=== PATIENT | female | born 1950 | race Caucasian/White ===

== ENCOUNTER 2022-10-23 11:58 | Inpatient (IN) | payer MEDICARE ==
[2022-10-23] MEDS ORDERED: SODIUM CHLORIDE 0.9% 1,000 ML IV STA (12:35)
[2022-10-23] MEDS ORDERED: ACETAMINOPHEN TAB 325 MG TAB PO STA (12:37)
[2022-10-23] MEDS ORDERED: KETOROLAC 15 MG/ML 1 ML VIAL IVP STA (12:38)
--- NOTE | 2022-10-23 12:41 | ED ---
General Adult HPI - General Chief complaint: Weakness Stated complaint: Flu,Chest Pain Time Seen by Provider: 10/23/22 12:22 Source: patient, family, EMS, RN notes reviewed, old records reviewed Mode of arrival: EMS Limitations: no limitations - History of Present Illness Initial comments: This is a 72-year-old female alert and oriented x4 that presents to the emergency room via EMS with complaints of persistent cough, chills, and diarrhea that started on Thursday. Patient states that she took some leftover steroids that she had on Thursday. Did see her primary care doctor on Thursday and was prescribed a Z-Yamil and cough medicine and directed to continue the steroids. States was told she had influenza without any testing. Patient states that she was on the toilet yesterday having large episode of diarrhea when she stood up she had a syncopal episode falling forward. Unsure how long she was down. She does live alone. Denies hitting her head. She denies any chest pain. She states she is a daily smoker but has not smoked since getting sick. -: days(s) (6) Severity scale (1-10): 0 Associated Symptoms: cough, fever/chills, malaise, syncope, weakness, other (Diarrhea) Treatments Prior to Arrival: other (Z-Yamil, steroids) - Related Data Home Medications Medication Instructions Recorded Confirmed Azithromycin [Zithromax Z Pack] See Taper PO DIRECTED 10/23/22 10/23/22 Glimepiride [Amaryl] 8 mg PO DAILY 10/23/22 10/23/22 Pioglitazone [Actos] 45 mg PO DAILY 10/23/22 10/23/22 Rosuvastatin [Crestor] 20 mg PO DAILY 10/23/22 10/23/22 Allergies Allergy/AdvReac Type Severity Reaction Status Date / Time brompheniramine Allergy Unknown Verified 10/23/22 12:30 [From Tussi Pres-B] dextromethorphan Allergy Unknown Verified 10/23/22 12:30 [From Tussi Pres-B] gabapentin Allergy Unknown Verified 10/23/22 12:30 nitrofurantoin Allergy Unknown Verified 10/23/22 12:30 [From Macrobid] phenylephrine Allergy Unknown Verified 10/23/22 12:30 [From Tussi Pres-B] Sulfa (Sulfonamide Allergy Unknown Verified 10/23/22 12:30 Antibiotics) Review of Systems ROS Statement: Those systems with pertinent positive or pertinent negative responses have been documented in the HPI. ROS Other: All systems not noted in ROS Statement are negative. Past Medical History Past Medical History: Diabetes Mellitus Additional Past Medical History / Comment(s): Type 2, Kidney Stones History of Any Multi-Drug Resistant Organisms: None Reported Past Surgical History: Hysterectomy Past Psychological History: No Psychological Hx Reported Smoking Status: Current every day smoker Past Alcohol Use History: None Reported Past Drug Use History: None Reported General Exam Limitations: no limitations General appearance: alert, in no apparent distress Head exam: Present: atraumatic Eye exam: Absent: scleral icterus, conjunctival injection, periorbital swelling ENT exam: Present: mucous membranes moist Neck exam: Present: full ROM. Absent: tenderness, meningismus Respiratory exam: Present: other (Diminished at the bases). Absent: respiratory distress, wheezes, rales, rhonchi, stridor, chest wall tenderness, accessory muscle use Cardiovascular Exam: Present: regular rate GI/Abdominal exam: Present: soft. Absent: distended, tenderness, guarding, rebound, rigid Extremities exam: Present: normal inspection, full ROM, normal capillary refill. Absent: tenderness, pedal edema Back exam: Present: normal inspection. Absent: tenderness, paraspinal tenderness, vertebral tenderness, rash noted Neurological exam: Present: alert, oriented X3 Psychiatric exam: Present: normal affect, normal mood Skin exam: Present: warm, dry, normal color. Absent: rash, cyanosis, diaphoretic, petechiae, pallor Course Vital Signs 10/23/22 10/23/22 10/23/22 12:20 12:31 13:41 Temperature 99.0 F 98.3 F Pulse Rate 83 81 Respiratory 20 22 18 Rate Blood Pressure 130/63 148/73 O2 Sat by Pulse 97 97 Oximetry 10/23/22 10/23/22 14:05 15:25 Temperature 98.2 F Pulse Rate 80 73 Respiratory 18 17 Rate Blood Pressure 155/74 152/58 O2 Sat by Pulse 95 96 Oximetry - Reevaluation(s) Reevaluation #1: 10/23/22 16:58 Dr. Hicks cardiology notified of patient's elevated troponin. Heparin was initiated. Time: 15:12 EKG Findings - EKG Results: EKG: sinus rhythm (Ventricular rate 77, KS interval 0.122, QRS 0.90, QTC 0.437) Medical Decision Making - Medical Decision Making Chest x-ray interpreted by me shows no evidence of consolidation, cardiac silhouette within normal size Radiologist interpretation correlate for interstitial pneumonitis or pneumonia. Correlate for COPD Labs show no evidence of leukocytosis. EKG shows sinus rhythm with no ST elevation. No old EKG to compare Moderate heart score. Troponin is elevated at 14.5 for heparin drip was initiated cardiology was paged patient will be admitted to the hospital. Patient was notified of the results and agreeable to admission. Coronavirus and influenza swabs negative Was pt. sent in by a medical professional or institution? @ -No Did you speak to anyone other than the patient for history? @ -No Did you review nursing and triage notes? @ -Agreeable Were old charts reviewed? @ no Differential Diagnosis? @ -Differential Dyspnea: Coronary syndrome, arrhythmia, tamponade, asthma, COPD, pulmonary embolism, pneumonia, pneumothorax, pulmonary effusion, anaphylaxis, diabetic ketoacidosis, flailed chest, pulmonary contusion, diaphragmatic rupture, anemia, neuromuscular , this is not meant to be an all-inclusive list. EKG interpreted by me (3pts min.)? @ -yes as above X-rays interpreted by me (1pt min.)? @ -Yes as above CT interpreted by me (1pt min.)? @ -Not applicable U/S interpreted by me (1pt. min.)? @ -Not applicable What testing was considered but not performed? (CT, X-rays, U/S, labs)? Why? @ None What meds were considered but not given? Why? @ -Done Did you discuss the management of the patient with other professionals? @ -Cardiology Dr. Hicks Did you reconcile home meds? @ -No Was smoking cessation discussed for >3mins.? @ -no Was critical care preformed (if so, how long)? @ -Yes 32 minutes Were there social determinants of health that impacted care today? How? (Homelessness, low income, unemployed, alcoholism, drug addiction, transportation, low edu. Level, literacy, decrease access to med. care, detention, rehab)? @ -None Was there de-escalation of care discussed even if they declined? (Discuss DNR or withdrawal of care, Hospice)? @ -No What co-morbidities impacted this encounter? (DM, HTN, Smoking, COPD, CAD, Cancer, CVA, Hep., AIDS, mental health diagnosis, sleep apnea, morbid obesity)? @ -Diabetes, smoker. Was patient admitted / discharged? @ -Admitted Undiagnosed new problem with uncertain prognosis? @ -[none] Drug Therapy requiring intensive monitoring for toxicity (Heparin, Nitro, Insulin, Cardizem)? @ -Heparin Were any procedures done? @ -No Diagnosis/symptom? @ -N STEMI influenza Acute, or Chronic, or Acute on Chronic? @ -Acute Uncomplicated (without systemic symptoms) or Complicated (systemic symptoms)? @ -Complicated Side effects of treatment? @ -[none] Exacerbation, Progression, or Severe Exacerbation] @ -[no] Poses a threat to life or bodily function? @ -Yes - Lab Data Result diagrams: 10/23/22 13:22 10/23/22 13: Lab Results 10/23/22 10/23/22 10/23/22 Range/Units 13:22 13:22 13:22 WBC 7.7 (3.8-10.6) k/uL RBC 4.53 (3.80-5.40) m/uL Hgb 14.2 (11.4-16.0) gm/dL Hct 41.4 (34.0-46.0) % MCV 91.3 (80.0-100.0) fL MCH 31.4 (25.0-35.0) pg MCHC 34.4 (31.0-37.0) g/dL RDW 14.2 (11.5-15.5) % Plt Count 156 (150-450) k/uL MPV 9.1 Neutrophils % 68 % Lymphocytes % 20 % Monocytes % 7 % Eosinophils % 1 % Basophils % 1 % Neutrophils # 5.2 (1.3-7.7) k/uL Lymphocytes # 1.5 (1.0-4.8) k/uL Monocytes # 0.6 (0-1.0) k/uL Eosinophils # 0.1 (0-0.7) k/uL Basophils # 0.1 (0-0.2) k/uL PT 9.8 (9.0-12.0) sec INR 0.9 (<1.2) APTT 25.6 (22.0-30.0) sec Sodium 135 L (137-145) mmol/L Potassium 3.4 L (3.5-5.1) mmol/L Chloride 103 (98-107) mmol/L Carbon Dioxide 25 (22-30) mmol/L Anion Gap 7 mmol/L BUN 12 (7-17) mg/dL Creatinine 0.51 L (0.52-1.04) mg/dL Est GFR (CKD-EPI)AfAm >90 (>60 ml/min/1.73 sqM) Est GFR (CKD-EPI)NonAf >90 (>60 ml/min/1.73 sqM) Glucose 216 H (74-99) mg/dL Calcium 8.4 (8.4-10.2) mg/dL Magnesium 2.0 (1.6-2.3) mg/dL Total Bilirubin 1.0 (0.2-1.3) mg/dL AST 106 H (14-36) U/L ALT 35 H (4-34) U/L Alkaline Phosphatase 70 (38-126) U/L Troponin I (0.000-0.034) ng/mL Total Protein 7.3 (6.3-8.2) g/dL Albumin 4.0 (3.5-5.0) g/dL 10/23/22 Range/Units 13:22 WBC (3.8-10.6) k/uL RBC (3.80-5.40) m/uL Hgb (11.4-16.0) gm/dL Hct (34.0-46.0) % MCV (80.0-100.0) fL MCH (25.0-35.0) pg MCHC (31.0-37.0) g/dL RDW (11.5-15.5) % Plt Count (150-450) k/uL MPV Neutrophils % % Lymphocytes % % Monocytes % % Eosinophils % % Basophils % % Neutrophils # (1.3-7.7) k/uL Lymphocytes # (1.0-4.8) k/uL Monocytes # (0-1.0) k/uL Eosinophils # (0-0.7) k/uL Basophils # (0-0.2) k/uL PT (9.0-12.0) sec INR (<1.2) APTT (22.0-30.0) sec Sodium (137-145) mmol/L Potassium (3.5-5.1) mmol/L Chloride (98-107) mmol/L Carbon Dioxide (22-30) mmol/L Anion Gap mmol/L BUN (7-17) mg/dL Creatinine (0.52-1.04) mg/dL Est GFR (CKD-EPI)AfAm (>60 ml/min/1.73 sqM) Est GFR (CKD-EPI)NonAf (>60 ml/min/1.73 sqM) Glucose (74-99) mg/dL Calcium (8.4-10.2) mg/dL Magnesium (1.6-2.3) mg/dL Total Bilirubin (0.2-1.3) mg/dL AST (14-36) U/L ALT (4-34) U/L Alkaline Phosphatase (38-126) U/L Troponin I 14.500 H* (0.000-0.034) ng/mL Total Protein (6.3-8.2) g/dL Albumin (3.5-5.0) g/dL Critical Care Time Critical Care Time: Yes Total Critical Care Time: 32 (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 Camacho, cardiology paged) Disposition Clinical Impression: NSTEMI (non-ST elevated myocardial infarction) Disposition: ADMITTED IP TO THIS [facility] Decision Date: 10/23/22 Decision Time: 14:36
[2022-10-23 13:34] LABS: Basophils # (A) 0.1 k/uL (0-0.2); Basophils % (A) 1 %; Eosinophils # (A) 0.1 k/uL (0-0.7); Eosinophils % (A) 1 %; HCT 41.4 % (34.0-46.0); HGB 14.2 gm/dL (11.4-16.0); Lymphocytes # (A) 1.5 k/uL (1.0-4.8); Lymphocytes % (A) 20 %; MCH 31.4 pg (25.0-35.0); MCHC 34.4 g/dL (31.0-37.0); MCV 91.3 fL (80.0-100.0); Mean Platelet Volume 9.1; Monocytes # (A) 0.6 k/uL (0-1.0); Monocytes % (A) 7 %; Neutrophils # (A) 5.2 k/uL (1.3-7.7); Neutrophils % (A) 68 %; Platelet Count 156 k/uL (150-450); RBC 4.53 m/uL (3.80-5.40); RDW 14.2 % (11.5-15.5); WBC 7.7 k/uL (3.8-10.6)
--- NOTE | 2022-10-23 13:40 | XR ---
EXAMINATION TYPE: XR chest 2V DATE OF EXAM: 10/23/2022 COMPARISON: NONE TECHNIQUE: PA and lateral views submitted. HISTORY: Fever and cough FINDINGS: The lungs are clear and there is no pneumothorax, pleural effusion, or focal pneumonia. Worsening i nterstitium. Arthropathy of the shoulders. Atherosclerotic change aorta. Hyperinflation. IMPRESSION: 1. Correlate for interstitial pneumonitis or pneumonia. 2. Correlate for COPD.
[2022-10-23 13:52] LABS: INR 0.9 (<1.2); Partial Thromboplastin Time 25.6 sec (22.0-30.0); Prothrombin Time 9.8 sec (9.0-12.0)
[2022-10-23 14:03] LABS: ALT 35 U/L (4-34); AST 106 U/L (14-36); African American GFR (CKD) >90 (>60 ml/min/1.73 sqM); Alkaline Phosphatase 70 U/L (38-126); Anion Gap 7 mmol/L; Blood Urea Nitrogen 12 mg/dL (7-17); Calcium 8.4 mg/dL (8.4-10.2); Carbon Dioxide 25 mmol/L (22-30); Chloride 103 mmol/L (98-107); Glucose 216 mg/dL (74-99); Non-African American GFR(CKD) >90 (>60 ml/min/1.73 sqM); Potassium 3.4 mmol/L (3.5-5.1); Sodium 135 mmol/L (137-145); Total Protein 7.3 g/dL (6.3-8.2)
[2022-10-23] MEDS ORDERED: HEPARIN SODIUM 1,000 UN/ML (10ML VL) IV PRN (14:30)
[2022-10-23] MEDS ORDERED: HEPARIN SODIUM 1,000 UN/ML (10ML VL) IV ONE (14:30)
[2022-10-23] MEDS ORDERED: NALOXONE 0.4 MG/ML 1 ML VIAL IV PRN (14:36)
[2022-10-23] MEDS ORDERED: ACETAMINOPHEN TAB 325 MG TAB PO PRN (14:36)
[2022-10-23] MEDS ORDERED: ONDANSETRON 4 MG/2 ML VIAL IVP PRN (14:36)
[2022-10-23] MEDS: PANTOPRAZOLE 40 MG/10 ML VIAL IV SCH (15:19)
[2022-10-23] MEDS: HEPARIN SOD,PORK IN 0.45% NACL 25,000 UNIT in 0.45% NACL 1 250ML.BAG IV SCH (15:22)
[2022-10-23] MEDS: SODIUM CHLORIDE 0.9% 1,000 ML IV SCH (15:24)
[2022-10-23] MEDS ORDERED: ATORVASTATIN 40 MG TAB PO SCH (17:15)
--- NOTE | 2022-10-23 17:19 | P.HPIM ---
History of Present Illness H&P Date: 10/23/22 Julianne Capps, is a 72 year old female, patient of Dr Smith, who presented to [facility] emergency room with a chief complaint of fever or chills and cough He was evaluated in the emergency room vital examination on presentation revealed a temperature of 99 pulse 83 respiration 20 blood pressure 130/63 pulse ox 97% on room air Laboratory data reveals a white blood count of 7.7 hemoglobin 14.2 platelet count 156 sodium 135 potassium 3.4 chloride 103 CO2 25 BUN 12 creatinine 0.51 testing for influenza A and B and coronavirus were negative. Troponin level was significantly elevated at 14.5 Testing in the emergency room revealed chest x-ray done in the emergency room revealed evidence of interstitial pneumonitis or pneumonia and possible COPD, EKG done in the emergency room revealed sinus rhythm with nonspecific ST and T- wave abnormalities Patient was admitted to medical floor for further evaluation and treatment, she was started on IV heparin, cardiology consultation was requested, also pulmonary consultation was requested in regard to fever cough and abnormal chest x-ray. Past Medical History Past Medical History: Diabetes Mellitus Additional Past Medical History / Comment(s): Type 2, Kidney Stones History of Any Multi-Drug Resistant Organisms: None Reported Past Surgical History: Hysterectomy Past Psychological History: No Psychological Hx Reported Smoking Status: Current every day smoker Past Alcohol Use History: None Reported Past Drug Use History: None Reported Medications and Allergies Home Medications Medication Instructions Recorded Confirmed Type Azithromycin [Zithromax Z Pack] See Taper PO DIRECTED 10/23/22 10/23/22 History Glimepiride [Amaryl] 8 mg PO DAILY 10/23/22 10/23/22 History Pioglitazone [Actos] 45 mg PO DAILY 10/23/22 10/23/22 History Rosuvastatin [Crestor] 20 mg PO DAILY 10/23/22 10/23/22 History Allergies Allergy/AdvReac Type Severity Reaction Status Date / Time brompheniramine Allergy Unknown Verified 10/23/22 12:30 [From Tussi Pres-B] dextromethorphan Allergy Unknown Verified 10/23/22 12:30 [From Tussi Pres-B] gabapentin Allergy Unknown Verified 10/23/22 12:30 nitrofurantoin Allergy Unknown Verified 10/23/22 12:30 [From Macrobid] phenylephrine Allergy Unknown Verified 10/23/22 12:30 [From [facility]] Sulfa (Sulfonamide Allergy Unknown Verified 10/23/22 12:30 Antibiotics) Physical Exam Vitals: Vital Signs Temp Pulse Resp BP Pulse Ox 10/23/22 15:25 73 17 152/58 96 10/23/22 14:05 98.2 F 80 18 155/74 95 10/23/22 13:41 98.3 F 81 18 148/73 97 10/23/22 12:31 22 10/23/22 12:20 99.0 F 83 20 130/63 97 Intake and Output 10/23/22 10/23/22 10/23/22 06:59 14:59 22:59 Other: Weight 57.606 kg In general patient is alert and oriented x 3 in no distress HEENT head normocephalic and atraumatic Neck is supple no JVD no goiter no lymphadenopathy no carotid bruit Chest examination is clear to auscultation no crackles no wheezing Cardiac exam reveals regular heart sounds S1 and S2 no gallops no murmurs Abdomen is soft nontender no organomegaly with normal bowel sounds Extremity exam reveals no edema no cyanosis or clubbing Neurological examination reveals no gross focal deficits Results CBC & Chem 7: 10/23/22 13:22 10/23/22 13:22 Labs: Abnormal Lab Results - Last 24 Hours (Table) 10/23/22 10/23/22 Range/Units 13:22 13:22 Sodium 135 L (137-145) mmol/L Potassium 3.4 L (3.5-5.1) mmol/L Creatinine 0.51 L (0.52-1.04) mg/dL Glucose 216 H (74-99) mg/dL AST 106 H (14-36) U/L ALT 35 H (4-34) U/L Troponin I 14.500 H* (0.000-0.034) ng/mL Assessment and Plan Plan: Elevated troponin level, patient was started on IV heparin cardiology consultation requested Acute bronchitis with febrile illness, rule out pneumonia, will start IV Rocephin, will recheck chest x-ray in a.m. tomorrow PA and lateral Syncopal episode at home Underlying history of [id number] diabetes mellitus Underlying history of hyperlipidemia Previous history of kidney stones At this time patient was seen and examined Home medications reviewed and reordered Patient was started on IV heparin Patient was started on IV ceftriaxone Pulmonary and cardiology consultation requested Will follow closely
[2022-10-23] MEDS: MELATONIN 5 MG TABLET PO SCH (20:15)
[2022-10-23 20:16] LABS: Glucose,Whole Blood 293 mg/dL (70-110)
[2022-10-23] MEDS ORDERED: DEXTROSE 50% SYRINGE 50 ML IVP PRN ×2 (20:16)
[2022-10-23] MEDS: INSULIN ASPART (NovoLOG) 100 UNIT/ML VIAL SQ SCH (20:26)
[2022-10-24 04:21] LABS: Basophils % (A) 0 %; Eosinophils # (A) 0.1 k/uL (0-0.7); Eosinophils % (A) 1 %; HGB 12.1 gm/dL (11.4-16.0); Lymphocytes # (A) 1.5 k/uL (1.0-4.8); Lymphocytes % (A) 21 %; MCHC 34.7 g/dL (31.0-37.0); MCV 92.2 fL (80.0-100.0); Mean Platelet Volume 8.5; Monocytes # (A) 0.6 k/uL (0-1.0); Monocytes % (A) 8 %; Neutrophils # (A) 4.7 k/uL (1.3-7.7); Neutrophils % (A) 67 %; Platelet Count 142 k/uL (150-450); RBC 3.79 m/uL (3.80-5.40); RDW 13.8 % (11.5-15.5)
[2022-10-24 04:33] LABS: INR 0.9 (<1.2); Partial Thromboplastin Time 39.3 sec (22.0-30.0); Prothrombin Time 9.6 sec (9.0-12.0)
[2022-10-24 06:35] LABS: Glucose,Whole Blood 121 mg/dL (70-110)
[2022-10-24] MEDS ORDERED: HEPARIN SODIUM,PORCINE 2,500 UNIT in SODIUM CHLORIDE 0.9% 250 ML IRRIGATION PRN (07:00)
[2022-10-24] MEDS ORDERED: HEPARIN SODIUM,PORCINE 10,000 UNIT in SODIUM CHLORIDE 0.9% 1,000 ML IRRIGATION PRN (07:00)
--- NOTE | 2022-10-24 08:19 | XR ---
EXAMINATION TYPE: XR chest 2V DATE OF EXAM: 10/24/2022 COMPARISON: 10/23/2022 TECHNIQUE: PA and lateral views submitted. HISTORY: Fever FINDINGS: The lungs are clear and there is no pneumothorax, pleural effusion, or focal pneumonia. Hyperinflat ion with coarsened interstitium. Arthropathy of the shoulders with diffuse osteopenia. IMPRESSION: 1. COPD. Interstitium remains prominent which could been the basis of chronic interstitial lung disea se or interstitial pneumonitis correlate clinically.
[2022-10-24] MEDS: PIOGLITAZONE 45 MG TAB PO SCH (08:23)
[2022-10-24] MEDS: GLIMEPIRIDE 4 MG TAB PO SCH (08:23)
[2022-10-24] MEDS: INSULIN ASPART (NovoLOG) 100 UNIT/ML VIAL SQ SCH ×4 (08:23→20:56)
[2022-10-24] MEDS: PANTOPRAZOLE 40 MG/10 ML VIAL IV SCH (08:23)
[2022-10-24] MEDS: SODIUM CHLORIDE 0.9% 1,000 ML IV SCH ×2 (10:14→18:04)
[2022-10-24] MEDS ORDERED: ALPRAZolam 0.25 MG TAB PO PRN (11:31)
[2022-10-24] MEDS ORDERED: NITROGLYCERIN SL TABS 0.4 MG TAB SUBLINGUAL PRN (11:31)
[2022-10-24] MEDS ORDERED: ALPRAZolam 0.5 MG TAB PO PRN (11:31)
[2022-10-24] MEDS ORDERED: ATORVASTATIN 80 MG TAB PO STA (11:31)
[2022-10-24] MEDS ORDERED: ASPIRIN 325 MG TAB PO STA (11:31)
--- NOTE | 2022-10-24 11:37 | P.CRDCN ---
History of Present Illness History of present illness: HISTORY OF PRESENTING ILLNESS Patient is a pleasant 72-year-old female with history of diabetes mellitus type 2 hypertension, hyperlipidemia, tobacco abuse who presents secondary to recent c ough and shortness of breath. She states she has had a persistent cough for the last 5-6 days. She did develop some chest discomfort Thursday which lasted for almost half the day and she attributed this to coughing too hard. Her family member believes she was having chest pain yesterday as well. Additionally family member states she fell unclear if she actually passed out previously as well. She denies any prior cardiac history however did have heart catheterization approximately 10 years ago. This was reportedly relatively normal. She has had diabetes for 25 years. She does smoke however no diagnosis of COPD. EKG shows sinus rhythm with nonspecific minimal ST depressions in the inferior leads. Blood work shows troponin 14.5, 13.6, proBNP 812. No current chest pain REVIEW OF SYSTEMS At the time of my exam: CONSTITUTIONAL: Denies fever or chills. CARDIOVASCULAR: +chest pain, +shortness of breath, no orthopnea, PND or palpitations. RESPIRATORY: +cough. GASTROINTESTINAL: Denies abdominal pain, diarrhea, constipation, nausea or vomiting. MUSCULOSKELETAL: Denies myalgias. NEUROLOGIC: Denies numbness, tingling or weakness. ENDOCRINE: Denies fatigue, weight change, polydipsia or polyurina. GENITOURINARY: Denies burning, hematuria or urgency with micturation. HEMATOLOGIC: Denies history of anemia or bleeding. PHYSICAL EXAMINATION Vital signs reviewed. CONSTITUTIONAL: No apparent distress. HEENT: Head is normocephalic. Pupils are equal, round. Sclerae anicteric. Mucous membranes of the mouth are moist. No JVD. No carotid bruit. CHEST EXAMINATION: Lungs are clear to auscultation. No chest wall tenderness is noted on palpation or with deep breathing. HEART EXAMINATION: Regular rate and rhythm. S1, S2 heard. No murmurs, gallops or rub. ABDOMEN: Soft, nontender. Positive bowel sounds. EXTREMITIES: 2+ peripheral pulses, no lower extremity edema and no calf tend erness. NEUROLOGIC EXAMINATION: Patient is awake, alert and oriented x3. ASSESSMENT 1. Non-STEMI 2. Diabetes mellitus type 2 3. Hyperlipidemia 4. Recent episodes of chest pain she attributed to coughing suspect angina 5. Recent cough rule out infectious etiology 6. Tobacco abuse PLAN Patient with non-STEMI with significantly elevated troponins. Suspect she had [place] with chest pain approximately 2 days ago. Some report of questionable fall unclear if she actually lost consciousness. Discussed recommendations for heart catheterization and patient is agreeable. Tobacco cessation. Check 2-D echo. Further recommendations to follow. Past Medical History Past Medical History: Diabetes Mellitus Additional Past Medical History / Comment(s): Type 2, Kidney Stones History of Any Multi-Drug Resistant Organisms: None Reported Past Surgical History: Hysterectomy Past Anesthesia/Blood Transfusion Reactions: No Reported Reaction Past Psychological History: No Psychological Hx Reported Smoking Status: Current every day smoker Past Alcohol Use History: None Reported Past Drug Use History: None Reported - Past Family History Father Family Medical History: Coronary Artery Disease (CAD), Diabetes Mellitus Mother Family Medical History: Coronary Artery Disease (CAD), Diabetes Mellitus Medications and Allergies Home Medications Medication Instructions Recorded Confirmed Type Azithromycin [Zithromax Z Pack] See Taper PO DIRECTED 10/23/22 10/23/22 History Glimepiride [Amaryl] 8 mg PO DAILY 10/23/22 10/23/22 History Pioglitazone [Actos] 45 mg PO DAILY 10/23/22 10/23/22 History Rosuvastatin [Crestor] 20 mg PO DAILY 10/23/22 10/23/22 History Allergies Allergy/AdvReac Type Severity Reaction Status Date / Time atorvastatin [From Lipitor] Allergy Unknown Verified 10/23/22 18:12 brompheniramine Allergy Unknown Verified 10/23/22 12:30 [From Tussi Pres-B] cephalexin [From Keflex] Allergy Unknown Verified 10/23/22 18:10 dextromethorphan Allergy Unknown Verified 10/23/22 12:30 [From Tussi Pres-B] gabapentin Allergy Unknown Verified 10/23/22 12:30 Iodinated Contrast Media Allergy Anaphylaxis Verified 10/23/22 18:10 nitrofurantoin Allergy Unknown Verified 10/23/22 12:30 [From Macrobid] phenylephrine Allergy Unknown Verified 10/23/22 12:30 [From Tussi Pres-B] simvastatin [From Zocor] Allergy Unknown Verified 10/23/22 18:12 Sulfa (Sulfonamide Allergy Unknown Verified 10/23/22 12:30 Antibiotics) Physical Exam Vitals: Vital Signs Temp Pulse Pulse Resp BP BP Pulse Ox 10/24/22 08:21 98.0 F 82 18 96/57 81 L 10/24/22 03:21 98.7 F 75 18 124/61 94 L 10/23/22 23:26 98.4 F 71 18 138/57 98 10/23/22 19:37 98.3 F 72 18 125/53 95 10/23/22 17:32 99.1 F 63 16 113/43 97 10/23/22 16:58 71 16 123/60 97 10/23/22 15:25 73 17 152/58 96 10/23/22 14:05 98.2 F 80 18 155/74 95 10/23/22 13:41 98.3 F 81 18 148/73 97 10/23/22 12:31 22 10/23/22 12:20 99.0 F 83 20 130/63 97 Intake and Output 10/23/22 10/24/22 10/24/22 22:59 06:59 14:59 Intake Total 241.017 60.084 Balance 241.017 60.084 Intake: Intake, IV Titration 41.017 60.084 Amount Heparin Sod,Pork in 0.45% 41.017 60.084 NaCl 25,000 unit In 0.45 % NaCl 1 250ml.bag @ 12 UNITS/KG/HR 6.913 mls/hr IV .Q24H [facility] Rx#: [id number] Oral 200 Other: # Voids 1 Weight 57.606 kg Results 10/24/22 03:30 10/23/22 13:22 Cardiac Enzymes 10/23/22 10/23/22 10/23/22 Range/Units 13:22 13:22 16:55 AST 106 H (14-36) U/L Troponin I 14.500 H* 13.600 H* (0.000-0.034) ng/mL Coagulation 10/23/22 10/23/22 10/24/22 Range/Units 13:22 20:25 03:30 PT 9.8 9.6 (9.0-12.0) sec APTT 25.6 43.1 H 39.3 H (22.0-30.0) sec CBC 10/23/22 10/24/22 Range/Units 13:22 03:30 WBC 7.7 7.0 (3.8-10.6) k/uL RBC 4.53 3.79 L (3.80-5.40) m/uL Hgb 14.2 12.1 (11.4-16.0) gm/dL Hct 41.4 35.0 (34.0-46.0) % Plt Count 156 142 L (150-450) k/uL Comprehensive Metabolic Panel 10/23/22 Range/Units 13:22 Sodium 135 L (137-145) mmol/L Potassium 3.4 L (3.5-5.1) mmol/L Chloride 103 (98-107) mmol/L Carbon Dioxide 25 (22-30) mmol/L BUN 12 (7-17) mg/dL Creatinine 0.51 L (0.52-1.04) mg/dL Glucose 216 H (74-99) mg/dL Calcium 8.4 (8.4-10.2) mg/dL AST 106 H (14-36) U/L ALT 35 H (4-34) U/L Alkaline Phosphatase 70 (38-126) U/L Total Protein 7.3 (6.3-8.2) g/dL Albumin 4.0 (3.5-5.0) g/dL Current Medications Generic Name Dose Route Start Last Admin Trade Name Freq PRN Reason Stop Dose Admin Acetaminophen 650 mg 10/23/22 14:36 Acetaminophen Tab 325 Mg Tab PO Q6HR PRN Mild Pain or Fever > 100.5 Albuterol/Ipratropium 3 ml 10/24/22 12:00 Ipratropium-Albuterol 3 Ml Neb INHALATION RT-Q4H [facility] Alprazolam 0.25 mg 10/24/22 11:31 Alprazolam 0.25 Mg Tab PO Q6HR PRN Mild Anxiety Alprazolam 0.5 mg 10/24/22 11:31 Alprazolam 0.5 Mg Tab PO Q6HR PRN Moderate Anxiety Aspirin 325 mg 10/24/22 11:31 Aspirin 325 Mg Tab PO 10/24/22 11:32 ONCE STA Atorvastatin Calcium 80 mg 10/24/22 11:31 Atorvastatin 80 Mg Tab PO 10/24/22 11:32 ONCE STA Budesonide/Formoterol Fumarate 2 puff 10/24/22 20:00 Symbicort 160-4.5 Mcg Inhaler INHALATION RT-BID [facility] Dextrose/Water 25 ml 10/23/22 20:16 Dextrose 50% Syringe 50 Ml IVP PER PROTOCOL PRN Hypoglycemia Protocol Dextrose/Water 50 ml 10/23/22 20:16 Dextrose 50% Syringe 50 Ml IVP PER PROTOCOL PRN Hypoglycemia Protocol Glimepiride 8 mg 10/24/22 09:00 10/24/22 08:23 Glimepiride 4 Mg Tab PO 8 mg DAILY [facility] Administration Heparin Sodium (Porcine) 0 unit 10/23/22 14:30 Heparin Sodium 1,000 Un/Ml (10ml Vl) IV PER PROTOCOL PRN Low PTT Protocol Heparin Sodium/Sodium Chloride 250 mls @ 6.913 mls/hr 10/23/22 14:30 10/24/22 04:45 25,000 unit/ Sodium Chloride IV 16 units/kg/hr .Q24H [facility] 9.217 mls/hr Titration Protocol 12 UNITS/KG/HR Sodium Chloride 1,000 mls @ 75 mls/hr 10/23/22 14:45 10/24/22 10:14 Saline 0.9% IV Not Given .[id number] [facility] Ceftriaxone Sodium 1 gm/ 50 mls @ 100 mls/hr 10/23/22 17:15 10/24/22 08:23 Sodium Chloride IVPB 100 mls/hr Q24HR [facility] Administration Protocol Heparin Sodium (Porcine) 10, 1,001 mls @ 999 mls/hr 10/24/22 07:00 000 unit/ Sodium Chloride IRRIGATION 10/24/22 23:00 ONCE PRN INTRA-OP Heparin Sodium (Porcine) 2,500 250.5 mls @ 250 mls/hr 10/25/22 07:00 unit/ Sodium Chloride IRRIGATION 10/25/22 23:00 ONCE PRN INTRA-OP Insulin Aspart 0 unit 10/23/22 21:00 10/24/22 08:23 Insulin Aspart (Novolog) 100 Unit/Ml Vial SQ Not Given ACHS [facility] Protocol Melatonin 10 mg 10/23/22 21:00 10/23/22 20:15 Melatonin 5 Mg Tablet PO 10 mg HS [facility]DA Administration Methylprednisolone Sodium Succinate 60 mg 10/24/22 12:00 Methylprednisolone Sod Succi 125 Mg/2 Ml Vial IV Q6HR [facility] Naloxone HCl 0.2 mg 10/23/22 14:36 Naloxone 0.4 Mg/Ml 1 Ml Vial IV Q2M PRN Opioid Reversal Nitroglycerin 0.4 mg 10/24/22 11:31 Nitroglycerin Sl Tabs 0.4 Mg Tab SUBLINGUAL Q5M PRN Chest Pain Crestor 20mg Tab 20 each 10/24/22 09:00 PO DAILY [facility] Ondansetron HCl 4 mg 10/23/22 14:36 Ondansetron 4 Mg/2 Ml Vial IVP Q8HR PRN Nausea And Vomiting Pantoprazole Sodium 40 mg 10/23/22 14:45 10/24/22 08:23 Pantoprazole 40 Mg/10 Ml Vial IV 40 mg DAILY [facility] Administration Pioglitazone HCl 45 mg 10/24/22 09:00 10/24/22 08:23 Pioglitazone 45 Mg Tab PO 45 mg DAILY [facility]DA Administration Intake and Output 10/23/22 10/24/22 10/24/22 22:59 06:59 14:59 Intake Total 241.017 60.084 Balance 241.017 60.084 Intake: Intake, IV Titration 41.017 60.084 Amount Heparin Sod,Pork in 0.45% 41.017 60.084 NaCl 25,000 unit In 0.45 % NaCl 1 250ml.bag @ 12 UNITS/KG/HR 6.913 mls/hr IV .Q24H [facility] Rx#: [id number] Oral 200 Other: # Voids 1 Weight 57.606 kg 10/24/22 03:30 10/23/22 13:22
[2022-10-24] MEDS: methylPREDNISolone SOD SUCCI 125 MG/2 ML VIAL IV SCH ×3 (11:39→23:00)
[2022-10-24] MEDS ORDERED: VERAPAMIL 2.5 MG/ML 2 ML AMP ONE (11:48)
[2022-10-24] MEDS: CRESTOR 20 MG PO SCH (11:57)
[2022-10-24] MEDS ORDERED: diphenhydrAMINE 50 MG/ML 1 ML VIAL ONE (11:58)
[2022-10-24] MEDS ORDERED: SODIUM CHLORIDE 0.9% 1,000 ML IV ONE (12:00)
[2022-10-24] MEDS ORDERED: diphenhydrAMINE 50 MG/ML 1 ML VIAL IVP ONE (12:00)
[2022-10-24] MEDS ORDERED: MIDAZOLAM 2 MG/2 ML VIAL IVP ONE (12:00)
[2022-10-24] MEDS ORDERED: HEPARIN SODIUM 1,000 UN/ML (10ML VL) ONE (12:09)
[2022-10-24] MEDS ORDERED: LIDOCAINE 1% INJ 10MG/ML (5 ML VIAL-PF) SQ ONE (12:12)
[2022-10-24] MEDS ORDERED: HEPARIN SODIUM 1,000 UN/ML (10ML VL) IVP ONE (12:16)
[2022-10-24] MEDS ORDERED: IOPAMIDOL-370 125ML BTL INJ ONE (12:32)
[2022-10-24] MEDS ORDERED: CLOPIDOGREL 75 MG TAB ONE (12:38)
[2022-10-24] MEDS ORDERED: IOPAMIDOL-370 100ML BTL INJ ONE (12:41)
[2022-10-24] MEDS ORDERED: CLOPIDOGREL 75 MG TAB PO ONE (12:41)
[2022-10-24] MEDS ORDERED: RX INFO: IV CONTRAST WAS GIVEN 1 EACH MISC MISCELLANE PRN (12:44)
--- NOTE | 2022-10-24 12:44 | P.CARDCATH ---
Description of Procedure: PROCEDURES PERFORMED: Left heart catheterization, bilateral coronary angiography, left ventriculogram INDICATION: Non-STEMI CONSENT:I have discussed the risks, benefits and alternative therapies for the above-mentioned procedure and for both sedation/analgesia as well as necessary blood product administration, if indicated, as they pertain to this patient. The patient has indicated understanding and acceptance of the risks and procedures discussed. PROCEDURE: After the risks, benefits and alternatives of the above mentioned p rocedure explained in detail with the patient, informed consent was obtained. Patient was taken to the catheterization lab and prepped and draped in usual fashion. 1% lidocaine was used to anesthetize the right radial artery. A 6- [place]ian sheath was placed in the right radial artery using modified Seldinger technique. Left coronary angiography was performed with a 5-[place]ian JL 3.5 catheter and right coronary angiography was performed with a 5-[place]ian JR5 catheter in various views. A 5-[place]ian FR5 catheter was inserted into the left ventricle and pressure measurements were obtained. A 5-[place]ian pigtail catheter was inserted into the left ventricle and left ventriculography was performed with a power injection in the NARAYANAN projection. The right radial sheath was removed and a TR band was placed with hemostasis achieved. The patient tolerated the procedure well. Patient was transported back to the post catheterization holding area in stable condition. Conscious Sedation: Patient was monitored under the direct supervision of vision of myself for conscious sedation using Versed and fentanyl for a total duration of 20 minutes HEMODYNAMICS: Ao: 157/58 LV: 139/11, LVEDP 17 SELECTIVE CORONARY ARTERIOGRAPHY: LEFT MAIN: The left main is a large caliber vessel which bifurcates into the LAD and circumflex. There is no significant stenosis. LEFT ANTERIOR DESCENDING CORONARY ARTERY: LAD is a large caliber vessel which wraps around to the apex. There are mild luminal irregularities. Diagonal 1 is 100% occluded at its origin. Diagonal to a small caliber and has a mid 30-40% stenosis. LEFT CIRCUMFLEX CORONARY ARTERY: Left circumflex is a moderate caliber vessel with a mid circumflex 30% stenosis. RIGHT CORONARY ARTERY: The right coronary artery is a large caliber vessel which gives off a PDA and PLV branch and is the dominant vessel. There is 40-50% mid RCA stenosis LEFT VENTRICULOGRAM: LV ejection fraction 50% with anterolateral hypokinesis. FINAL IMPRESSION: 1. CAD as described above with 40-50% mid RCA, 30% circumflex and 100% ostial diagonal 1 stenosis 2. Mildly elevated left sided filling pressures 3. LV EF 50% with anterolateral hypokinesis PLAN: 1. Aggressive risk factor modification per most recent ACC/AHA guidelines. 2. Patient's chest pain was 2 days ago and appears she has completed her infarct of her small caliber diagonal 1 branch. Therefore recommend medical therapy especially given lesion at the origin of the diagonal branch.
--- NOTE | 2022-10-24 12:51 | P.CNPUL ---
History of Present Illness Consult date: 10/24/22 Requesting physician: Marissa Camacho Reason for consult: dyspnea, cough, COPD Chief complaint: Cough, shortness of breath, and chills. History of present illness: This is a 72-year-old female with known history of COPD, patient presented to the ER with almost 6 days history of cough, describes the cough as productive with yellow thick phlegm, wheezing, chills, but no fever, no hemoptysis, and she had no clear-cut symptoms to suggest chest pain. She saw her primary care physician on Thursday, and she was placed on Z-Yamil and cough medication. She was told that she may have influenza tracheobronchitis, no testing was performed. The day prior to admission, the patient had diarrhea and she almost had a near syncopal episode during the process. Patient lives alone, she doesn't recall having any trauma during her near syncopal or syncopal episode. At any rate patient presented to the ER, chest x-ray showed COPD, slightly prominent interstitium, no clear-cut evidence of pneumonia, patient was admitted, and this consult was initiated. Her CBC on admission was normal. Basic metabolic pr ofile was normal. However the patient was found to have significantly elevated troponin, normal BNP level, and she tested negative for influenza A, influenza B, RSV, and COVID-19. I saw the patient on consultation, and on physical examination she had diffuse rhonchi and wheezes, she was already seen by cardiology for her possible non-ST elevation myocardial infarction, and she is scheduled now to undergo cardiac catheterization sometime today patient is already receiving antibiotics in the form of Rocephin and she is also receiving bronchodilators and steroids. Review of Systems CONSTITUTIONAL: Chills, no fever, no weight loss. CARDIOVASCULAR: Patient had no clear-cut history suggest anginal symptoms during the whole process.. RESPIRATORY: As noted in HPI mostly cough, shortness of breath, wheezing, and. GASTROINTESTINAL: Diarrhea as noted earlier in HPI MUSCULOSKELETAL: Negative. NEUROLOGIC: Near syncope. As noted in HPI ENDOCRINE: Negative GENITOURINARY: Negative HEMATOLOGIC: Negative Past Medical History Past Medical History: Diabetes Mellitus Additional Past Medical History / Comment(s): Type 2, Kidney Stones History of Any Multi-Drug Resistant Organisms: None Reported Past Surgical History: Hysterectomy Past Anesthesia/Blood Transfusion Reactions: No Reported Reaction Past Psychological History: No Psychological Hx Reported Smoking Status: Current every day smoker Past Alcohol Use History: None Reported Past Drug Use History: None Reported - Past Family History Father Family Medical History: Coronary Artery Disease (CAD), Diabetes Mellitus Mother Family Medical History: Coronary Artery Disease (CAD), Diabetes Mellitus Medications and Allergies Home Medications Medication Instructions Recorded Confirmed Type Azithromycin [Zithromax Z Pack] See Taper PO DIRECTED 10/23/22 10/23/22 History Glimepiride [Amaryl] 8 mg PO DAILY 10/23/22 10/23/22 History Pioglitazone [Actos] 45 mg PO DAILY 10/23/22 10/23/22 History Rosuvastatin [Crestor] 20 mg PO DAILY 10/23/22 10/23/22 History Allergies Allergy/AdvReac Type Severity Reaction Status Date / Time atorvastatin [From Lipitor] Allergy Unknown Verified 10/23/22 18:12 brompheniramine Allergy Unknown Verified 10/23/22 12:30 [From Tussi Pres-B] cephalexin [From Keflex] Allergy Unknown Verified 10/23/22 18:10 dextromethorphan Allergy Unknown Verified 10/23/22 12:30 [From Tussi Pres-B] gabapentin Allergy Unknown Verified 10/23/22 12:30 Iodinated Contrast Media Allergy Anaphylaxis Verified 10/23/22 18:10 nitrofurantoin Allergy Unknown Verified 10/23/22 12:30 [From Macrobid] phenylephrine Allergy Unknown Verified 10/23/22 12:30 [From Tussi Pres-B] simvastatin [From Zocor] Allergy Unknown Verified 10/23/22 18:12 Sulfa (Sulfonamide Allergy Unknown Verified 10/23/22 12:30 Antibiotics) Physical Exam Vitals: Vital Signs Temp Pulse Pulse Resp BP BP Pulse Ox 10/24/22 08:21 98.0 F 82 18 96/57 81 L 10/24/22 03:21 98.7 F 75 18 124/61 94 L 10/23/22 23:26 98.4 F 71 18 138/57 98 10/23/22 19:37 98.3 F 72 18 125/53 95 10/23/22 17:32 99.1 F 63 16 113/43 97 10/23/22 16:58 71 16 123/60 97 10/23/22 15:25 73 17 152/58 96 10/23/22 14:05 98.2 F 80 18 155/74 95 10/23/22 13:41 98.3 F 81 18 148/73 97 Intake and Output 10/23/22 10/24/22 10/24/22 22:59 06:59 14:59 Intake Total 241.017 60.084 100 Balance 241.017 60.084 100 Intake: IV 100 Intake, IV Titration 41.017 60.084 Amount Heparin Sod,Pork in 0.45% 41.017 60.084 NaCl 25,000 unit In 0.45 % NaCl 1 250ml.bag @ 12 UNITS/KG/HR 6.913 mls/hr IV .Q24H [facility] Rx#: [id number] Oral 200 Other: # Voids 1 Weight 57.606 kg Physical Exam: Revealed 72-year-old female in no distress Head: Atraumatic normocephalic HEENT:[Neck is supple.] [No neck masses.] [No thyromegaly.] [No JVD.] Chest: [Cathetered rhonchi and wheezes noted bilaterally.] Cardiac Exam: [Normal S1 and S2, no S3 gallop, no murmur.] Abdomen: [Soft, nontender, no megaly, no rebound, no guarding, normal bowel sounds.] Extremities: [No clubbing, no edema, no cyanosis.] Neurological Exam: [No focal neurologic deficit.] Alert oriented 3 Psychiatric: Normal mood, affect and normal mental status examination. Skin: No rashes. Results - Laboratory Findings CBC and BMP: 10/24/22 03:30 10/23/22 13:22 PT/INR, D-dimer PT 9.6 sec (9.0-12.0) 10/24/22 03:30 INR 0.9 (<1.2) 10/24/22 03:30 Abnormal lab findings: Abnormal Labs 10/23/22 10/23/22 10/23/22 13:22 13:22 16:55 RBC Plt Count APTT Sodium 135 L Potassium 3.4 L Creatinine 0.51 L Glucose 216 H POC Glucose (mg/dL) AST 106 H ALT 35 H Troponin I 14.500 H* 13.600 H* 10/23/22 10/23/22 10/24/22 20:14 20:25 03:30 RBC 3.79 L Plt Count 142 L APTT 43.1 H Sodium Potassium Creatinine Glucose POC Glucose (mg/dL) 293 H AST ALT Troponin I 10/24/22 10/24/22 10/24/22 03:30 06:33 11:09 RBC Plt Count APTT 39.3 H 45.8 H Sodium Potassium Creatinine Glucose POC Glucose (mg/dL) 121 H AST ALT Troponin I - Diagnostic Findings Chest x-ray: image reviewed (As noted in HPI, slight prominence of the pulmonary vasculature, but no clear-cut evidence of pneumonia.) Assessment and Plan Assessment: Impression: Non-ST elevation myocardial infarction Acute exacerbation of COPD Acute purulent tracheobronchitis, doubt pneumonia Near syncope, exact etiology is not clear, could be related to her non-ST elevation myocardial infarction or cough/cough induced syncope Tobacco dependence syndrome Recommendation: Agree with antibiotics for now. Pro-calcitonin level is pending nonetheless the patient will need antibiotics for her purulent tracheobronchitis. Continue bronchodilators and steroids Patient will have cardiac catheterization today to evaluate her elevated troponin and non-ST elevation myocardial infarction Counseled regarding smoking cessation. We will continue to follow Time with Patient: Greater than 30
[2022-10-24] MEDS: IPRATROPIUM-ALBUTEROL 3 ML NEB INHALATION SCH ×4 (13:27→23:31)
[2022-10-24 13:47] LABS: Glucose,Whole Blood 70 mg/dL (70-110)
--- NOTE | 2022-10-24 14:15 | P.PN ---
Subjective Progress Note Date: 10/24/22 Julianne Capps, is a 72 year old female, patient of Dr Smith, who presented to [facility] emergency room with a chief complaint of fever or chills and cough He was evaluated in the emergency room vital examination on presentation revealed a temperature of 99 pulse 83 respiration 20 blood pressure 130/63 pulse ox 97% on room air Laboratory data reveals a white blood count of 7.7 hemoglobin 14.2 platelet count 156 sodium 135 potassium 3.4 chloride 103 CO2 25 BUN 12 creatinine 0.51 testing for influenza A and B and coronavirus were negative. Troponin level was significantly elevated at 14.5 Testing in the emergency room revealed chest x-ray done in the emergency room revealed evidence of interstitial pneumonitis or pneumonia and possible COPD, EKG done in the emergency room revealed sinus rhythm with nonspecific ST and T- wave abnormalities Patient was admitted to medical floor for further evaluation and treatment, she was started on IV heparin, cardiology consultation was requested, also pulmonary consultation was requested in regard to fever cough and abnormal chest x-ray. On 10/24/2022 patient underwent cardiac catheterization. Patient was found to have coronary artery disease with 40-55% mid RCA 30% circumflex 100% ostial diagonal stenosis recognitions per cardiology continue medical management at this time no stent was placed. Patient was started on Plavix. Patient is currently maintained on IV antibiotics and IV steroids per pulmonary. Patient is resting comfortably in bed. No chest pain or shortness breath. No nausea vomiting or diarrhea. No urinary burning or frequency Dr. Greenwood's group will be covering from 10/25/2022 to 11/05/2022 Objective - Vital Signs Vital signs: Vital Signs Temp 98.0 F 10/24/22 08:21 Pulse 74 10/24/22 13:59 Resp 18 10/24/22 13:59 BP 147/62 10/24/22 13:59 Pulse Ox 95 10/24/22 13:59 FiO2 Intake & Output 10/23/22 10/24/22 10/24/22 18:59 06:59 18:59 Intake Total 200 101.101 100 Balance 200 101.101 100 Weight 57.606 kg Intake: IV 100 Intake, IV Titration 101.101 Amount Heparin Sod,Pork in 0.45% 101.101 NaCl 25,000 unit In 0.45 % NaCl 1 250ml.bag @ 12 UNITS/KG/HR 6.913 mls/hr IV .Q24H [facility] Rx#: [id number] Oral 200 Other: # Voids 1 2 - Exam In general patient is alert and oriented x 3 in no distress HEENT head normocephalic and atraumatic Neck is supple no JVD no goiter no lymphadenopathy no carotid bruit Chest examination is clear to auscultation no crackles no wheezing Cardiac exam reveals regular heart sounds S1 and S2 no gallops no murmurs Abdomen is soft nontender no organomegaly with normal bowel sounds Extremity exam reveals no edema no cyanosis or clubbing Neurological examination reveals no gross focal deficits - Labs CBC & Chem 7: 10/24/22 03:30 10/23/22 13:22 Labs: Abnormal Lab Results - Last 24 Hours (Table) 10/23/22 10/23/22 10/23/22 Range/Units 13: 16:55 20:14 RBC (3.80-5.40) m/uL Plt Count (150-450) k/uL APTT (22.0-30.0) sec POC Glucose (mg/dL) 293 H (70-110) mg/dL Hemoglobin A1c (0.0-6.0) % Troponin I 14.500 H* 13.600 H* (0.000-0.034) ng/mL 10/23/22 10/23/22 10/24/22 Range/Units 20:25 20:25 03:30 RBC 3.79 L (3.80-5.40) m/uL Plt Count 142 L (150-450) k/uL APTT 43.1 H (22.0-30.0) sec POC Glucose (mg/dL) (70-110) mg/dL Hemoglobin A1c 8.7 H (0.0-6.0) % Troponin I (0.000-0.034) ng/mL 10/24/22 10/24/22 10/24/22 Range/Units 03:30 06:33 11:09 RBC (3.80-5.40) m/uL Plt Count (150-450) k/uL APTT 39.3 H 45.8 H (22.0-30.0) sec POC Glucose (mg/dL) 121 H (70-110) mg/dL Hemoglobin A1c (0.0-6.0) % Troponin I (0.000-0.034) ng/mL Assessment and Plan Plan: Elevated troponin level, status post cardiac catheterization medical management recommendations at this time per cardiology Acute bronchitis with febrile illness, rule out pneumonia, will start IV Rocephin, will recheck chest x-ray in a.m. tomorrow PA and lateral Syncopal episode at home Underlying history of [id number] diabetes mellitus Underlying history of hyperlipidemia Previous history of kidney stones At this time patient was seen and examined Home medications reviewed and reordered Patient started on Plavix per cardiology Patient retained on IV steroids and IV antibiotics per pulmonary Pulmonary and cardiology consultation requested Will follow closely
[2022-10-24 15:28] LABS: Glucose,Whole Blood 93 mg/dL (70-110)
[2022-10-24 16:50] LABS: Glucose,Whole Blood 300 mg/dL (70-110)
[2022-10-24] MEDS: METOPROLOL SUCCINATE (ER) 25 MG TAB.ER.24H PO SCH (17:26)
[2022-10-24] MEDS: HEPARIN SOD,PORK IN 0.45% NACL 25,000 UNIT in 0.45% NACL 1 250ML.BAG IV SCH (18:04)
[2022-10-24] MEDS: SYMBICORT 160-4.5 MCG INHALER INHALATION SCH (20:03)
[2022-10-24 20:29] LABS: Glucose,Whole Blood 458 mg/dL (70-110)
[2022-10-24] MEDS ORDERED: INSULIN ASPART (NovoLOG) 100 UNIT/ML VIAL SQ ONE (20:37)
[2022-10-24] MEDS: MELATONIN 5 MG TABLET PO SCH (20:56)
[2022-10-25] MEDS: IPRATROPIUM-ALBUTEROL 3 ML NEB INHALATION SCH ×5 (03:01→20:36)
[2022-10-25 06:00] LABS: Glucose,Whole Blood 287 mg/dL (70-110)
[2022-10-25] MEDS: INSULIN ASPART (NovoLOG) 100 UNIT/ML VIAL SQ SCH ×4 (06:15→20:13)
[2022-10-25] MEDS: methylPREDNISolone SOD SUCCI 125 MG/2 ML VIAL IV SCH ×4 (06:16→23:03)
[2022-10-25] MEDS: SYMBICORT 160-4.5 MCG INHALER INHALATION SCH ×2 (07:04→20:36)
[2022-10-25 07:47] LABS: Basophils % (A) 0 %; Eosinophils % (A) 0 %; HCT 36.7 % (34.0-46.0); HGB 12.1 gm/dL (11.4-16.0); Lymphocytes # (A) 1.2 k/uL (1.0-4.8); Lymphocytes % (A) 14 %; MCV 93.8 fL (80.0-100.0); Monocytes # (A) 0.2 k/uL (0-1.0); Monocytes % (A) 2 %; Neutrophils # (A) 7.2 k/uL (1.3-7.7); Neutrophils % (A) 81 %; Platelet Count 186 k/uL (150-450); RBC 3.91 m/uL (3.80-5.40); WBC 8.9 k/uL (3.8-10.6)
[2022-10-25 08:09] LABS: ALT 38 U/L (4-34); AST 55 U/L (14-36); African American GFR (CKD) >90 (>60 ml/min/1.73 sqM); Albumin 3.1 g/dL (3.5-5.0); Alkaline Phosphatase 74 U/L (38-126); Anion Gap 6 mmol/L; Blood Urea Nitrogen 14 mg/dL (7-17); Calcium 8.4 mg/dL (8.4-10.2); Carbon Dioxide 26 mmol/L (22-30); Chloride 106 mmol/L (98-107); Glucose 280 mg/dL (74-99); Non-African American GFR(CKD) >90 (>60 ml/min/1.73 sqM); Sodium 138 mmol/L (137-145); Total Bilirubin 0.5 mg/dL (0.2-1.3); Total Protein 5.7 g/dL (6.3-8.2)
[2022-10-25] MEDS ORDERED: POTASSIUM CHLORIDE ER 20 MEQ TAB.ER PO STA ×2 (09:34→09:54)
[2022-10-25] MEDS: EZETIMIBE 10 MG TAB PO SCH (09:35)
[2022-10-25] MEDS: METOPROLOL SUCCINATE (ER) 25 MG TAB.ER.24H PO SCH (09:35)
[2022-10-25 09:36] LABS: Glucose,Whole Blood 489 mg/dL (70-110)
[2022-10-25] MEDS: PANTOPRAZOLE 40 MG/10 ML VIAL IV SCH (09:36)
[2022-10-25] MEDS: PIOGLITAZONE 45 MG TAB PO SCH (09:36)
[2022-10-25] MEDS: GLIMEPIRIDE 4 MG TAB PO SCH (09:36)
[2022-10-25] MEDS: CLOPIDOGREL 75 MG TAB PO SCH (09:36)
[2022-10-25] MEDS: ASPIRIN 81 MG PO SCH (09:37)
[2022-10-25] MEDS: CRESTOR 20 MG PO SCH (09:37)
[2022-10-25] MEDS ORDERED: SODIUM CHLORIDE 0.65% NASAL SPRAY 44 ML BTL NASAL PRN (10:37)
--- NOTE | 2022-10-25 11:18 | P.PN ---
Subjective Progress Note Date: 10/25/22 72 year old female, patient of Dr Smith, who presented to [facility] emergency room with a chief complaint of fever or chills and cough He was evaluated in the emergency room vital examination on presentation revealed a temperature of 99 pulse 83 respiration 20 blood pressure 130/63 pulse ox 97% on room air Laboratory data reveals a white blood count of 7.7 hemoglobin 14.2 platelet cou nt 156 sodium 135 potassium 3.4 chloride 103 CO2 25 BUN 12 creatinine 0.51 testing for influenza A and B and coronavirus were negative. Troponin level was significantly elevated at 14.5 Testing in the emergency room revealed chest x-ray done in the emergency room revealed evidence of interstitial pneumonitis or pneumonia and possible COPD, EKG done in the emergency room revealed sinus rhythm with nonspecific ST and T- wave abnormalities Patient was admitted to medical floor for further evaluation and treatment, she was started on IV heparin, cardiology consultation was requested, also pulmonary consultation was requested in regard to fever cough and abnormal chest x-ray. Objective - Vital Signs Vital signs: Vital Signs Temp 97.9 F 10/25/22 03:14 Pulse 68 10/25/22 07:22 Resp 18 10/25/22 03:14 BP 119/62 10/25/22 03:14 Pulse Ox 92 L 10/25/22 07:05 FiO2 Intake & Output 10/24/22 10/25/22 10/25/22 18:59 06:59 18:59 Intake Total 280 120 Balance 280 120 Intake: IV 100 Oral 180 120 Other: # Voids 3 - Exam HEENT head normocephalic and atraumatic Neck is supple no JVD no goiter no lymphadenopathy no carotid bruit Chest examination is clear to auscultation no crackles no wheezing Cardiac exam reveals regular heart sounds S1 and S2 no gallops no murmurs Abdomen is soft nontender no organomegaly with normal bowel sounds Extremity exam reveals no edema no cyanosis or clubbing Neurological examination reveals no gross focal deficits - Labs CBC & Chem 7: 10/25/22 07:23 10/25/22 07:23 Labs: Abnormal Lab Results - Last 24 Hours (Table) 10/23/22 10/24/22 10/24/22 Range/Units 20:25 11:09 16:48 APTT 45.8 H (22.0-30.0) sec Potassium (3.5-5.1) mmol/L Glucose (74-99) mg/dL POC Glucose (mg/dL) 300 H (70-110) mg/dL Hemoglobin A1c 8.7 H (0.0-6.0) % AST (14-36) U/L ALT (4-34) U/L Total Protein (6.3-8.2) g/dL Albumin (3.5-5.0) g/dL 10/24/22 10/25/22 10/25/22 Range/Units 20:27 05:59 07:23 APTT (22.0-30.0) sec Potassium 3.0 L (3.5-5.1) mmol/L Glucose 280 H (74-99) mg/dL POC Glucose (mg/dL) 458 H 287 H (70-110) mg/dL Hemoglobin A1c (0.0-6.0) % AST 55 H (14-36) U/L ALT 38 H (4-34) U/L Total Protein 5.7 L (6.3-8.2) g/dL Albumin 3.1 L (3.5-5.0) g/dL Assessment and Plan Assessment: 1. Non-ST elevation [place] - Patient is being followed by cardiology and underwent cardiac catheterization which revealed 40-50% blockage mid RCA, 30% LCx and 100% ostial diagonal stenos is - Echocardiogram reveals EF of 50% with anterolateral hypokinesis - Cardiology recommending risk factor modification - Patient to continue medical therapy given 100% occlusion of the diagonal branc h; aspirin 81 mg daily, Lipitor 80 mg daily, Plavix 75 mg daily and metoprolol 12.5 mg daily 2. Acute purulent tracheobronchitis; currently on IV Rocephin 1 g daily; pulmonary service on board; remains on Symbicort 2 puffs twice a day 3. Acute exacerbation COPD; methylprednisolone 60 mg IV every 6 hours; continue with bronchodilator nebulizer treatments 4 times a day and when necessary 4. Diabetes mellitus 2; patient takes Amaryl 8 mg daily; Actos 45 mg daily, has been placed on Accu-Cheks every before meals and at bedtime with insulin sliding scale 5. Hyperlipidemia; Lipitor 80 mg by mouth daily at bedtime; his idea 10 mg daily 6. Hypertension; metoprolol 12.5 mg daily DVT prophylaxis; SCDs CODE STATUS; full code
--- NOTE | 2022-10-25 11:45 | P.PN ---
Subjective Progress Note Date: 10/25/22 HISTORY OF PRESENTING ILLNESS Patient is a pleasant 72-year-old female with history of diabetes mellitus type 2 hypertension, hyperlipidemia, tobacco abuse who presents secondary to recent cough and shortness of breath. She states she has had a persistent cough for the last 5-6 days. She did develop some chest discomfort Thursday which lasted for almost half the day and she attributed this to coughing too hard. Her family member believes she was having chest pain yesterday as well. Additionally family member states she fell unclear if she actually passed out previously as well. She denies any prior cardiac history however did have heart catheterization approximately 10 years ago. This was reportedly relatively normal. She has had diabetes for 25 years. She does smoke however no diagnosis of COPD. EKG shows sinus rhythm with nonspecific minimal ST depressions in the inferior leads. Blood work shows troponin 14.5, 13.6, proBNP 812. No current chest pain 10/25 Patient denies having any chest pain. She states she is having some shortness of breath wheezing and is on steroids and nebulizer treatments. Yesterday, patient underwent cardiac catheterization that revealed a 40-50% le jorge in the RCA, 30% circumflex and high percent and the ostial but was too small vessel to treat. Potassium is 3.0 and replaced. A1c came back at 8.7. PHYSICAL EXAMINATION Vital signs reviewed. CONSTITUTIONAL: No apparent distress. HEENT: Head is normocephalic. Pupils are equal, round. Sclerae anicteric. Mucous membranes of the mouth are moist. No JVD. CHEST EXAMINATION: Lungs are clear to auscultation. No chest wall tenderness is noted on palpation or with deep breathing. HEART EXAMINATION: Regular rate and rhythm. S1, S2 heard. No murmurs, gallops or rub. ABDOMEN: Soft, nontender. Positive bowel sounds. EXTREMITIES: 2+ peripheral pulses, no lower extremity edema and no calf tende rness. NEUROLOGIC EXAMINATION: Patient is awake, alert and oriented x3. ASSESSMENT 1. Non-STEMI 2. Diabetes mellitus type 2 3. Hyperlipidemia 4. Recent episodes of chest pain she attributed to coughing suspect angina 5. Recent cough rule out infectious etiology 6. Tobacco abuse PLAN Continue patient on aspirin 81 mg daily, Plavix 75 mg daily, Crestor 20 mg daily, Zetia 10 mg daily, Toprol-XL 12.5 mg daily Replace potassium From a cardiology perspective, patient is cleared for discharge home with plan to follow up with Dr. Hicks in 1-2 weeks Nurse practitioner note has been reviewed, I agree with the documented findings and plan of care. Patient was seen and examined. Objective - Vital Signs Vital signs: Vital Signs Temp 97.9 F 10/25/22 03:14 Pulse 68 10/25/22 07:22 Resp 18 10/25/22 03:14 BP 119/62 10/25/22 03:14 Pulse Ox 92 L 10/25/22 07:05 FiO2 Intake & Output 10/24/22 10/25/22 10/25/22 18:59 06:59 18:59 Intake Total 280 120 Balance 280 120 Intake: IV 100 Oral 180 120 Other: # Voids 3 - Labs CBC & Chem 7: 10/25/22 07:23 10/25/22 07:23 Labs: Abnormal Lab Results - Last 24 Hours (Table) 10/23/22 10/24/22 10/24/22 Range/Units 20:25 11:09 16:48 APTT 45.8 H (22.0-30.0) sec Potassium (3.5-5.1) mmol/L Glucose (74-99) mg/dL POC Glucose (mg/dL) 300 H (70-110) mg/dL Hemoglobin A1c 8.7 H (0.0-6.0) % AST (14-36) U/L ALT (4-34) U/L Total Protein (6.3-8.2) g/dL Albumin (3.5-5.0) g/dL 10/24/22 10/25/22 10/25/22 Range/Units 20:27 05:59 07:23 APTT (22.0-30.0) sec Potassium 3.0 L (3.5-5.1) mmol/L Glucose 280 H (74-99) mg/dL POC Glucose (mg/dL) 458 H 287 H (70-110) mg/dL Hemoglobin A1c (0.0-6.0) % AST 55 H (14-36) U/L ALT 38 H (4-34) U/L Total Protein 5.7 L (6.3-8.2) g/dL Albumin 3.1 L (3.5-5.0) g/dL 10/25/22 Range/Units 09:33 APTT (22.0-30.0) sec Potassium (3.5-5.1) mmol/L Glucose (74-99) mg/dL POC Glucose (mg/dL) 489 H (70-110) mg/dL Hemoglobin A1c (0.0-6.0) % AST (14-36) U/L ALT (4-34) U/L Total Protein (6.3-8.2) g/dL Albumin (3.5-5.0) g/dL
[2022-10-25 11:49] LABS: Glucose,Whole Blood 530 mg/dL (70-110)
[2022-10-25] MEDS ORDERED: INSULIN ASPART (NovoLOG) 100 UNIT/ML VIAL SQ ONE (12:22)
[2022-10-25] MEDS: FLUTICASONE 50MCG/SPRAY NASAL 16GM EA NOSTRIL SCH (12:34)
[2022-10-25] MEDS: INSULIN DETEMIR (LEVEMIR) 100 UNIT/ML SYR SQ SCH (13:13)
--- NOTE | 2022-10-25 13:14 | P.PN ---
Subjective Progress Note Date: 10/25/22 Principal diagnosis: acute exacerbation of COPD and a non-ST elevation myocardial infarction This is a 72-year-old female with known history of COPD, patient presented to the ER with almost 6 days history of cough, describes the cough as productive with yellow thick phlegm, wheezing, chills, but no fever, no hemoptysis, and she had no clear-cut symptoms to suggest chest pain. She saw her primary care physician on Thursday, and she was placed on Z-Yamil and cough medication. She was told that she may have influenza tracheobronchitis, no testing was performed. The day prior to admission, the patient had diarrhea and she almost had a near syncopal episode during the process. Patient lives alone, she doesn't recall having any trauma during her near syncopal or syncopal episode. At any rate patient presented to the ER, chest x-ray showed COPD, slightly prominent interstitium, no clear-cut evidence of pneumonia, patient was admitted, and this consult was initiated. Her CBC on admission was normal. Basic metabolic profile was normal. However the patient was found to have significantly elevated troponin, normal BNP level, and she tested negative for influenza A, in fluenza B, RSV, and COVID-19. I saw the patient on consultation, and on physical examination she had diffuse rhonchi and wheezes, she was already seen by cardiology for her possible non-ST elevation myocardial infarction, and she is scheduled now to undergo cardiac catheterization sometime today patient is already receiving antibiotics in the form of Rocephin and she is also receiving bronchodilators and steroids. Reevaluated today on 10/21/22, patient is feeling better, breathing easier, less cough and less wheezing less shortness of breath, nonetheless on physical examination she continues to have Mikhail and rhonchi and wheezes. Hence I believe the patient would benefit from another day of treatment using bronchodilators,patient is on room air, O2 sats is 96%.pro calcitonin level was normal which practically speaking ruled out pneumonia Objective - Vital Signs Vital signs: Vital Signs Temp 97.8 F 10/25/22 08:57 Pulse 70 10/25/22 11:26 Resp 16 10/25/22 08:57 BP 112/64 10/25/22 08:57 Pulse Ox 96 10/25/22 08:57 FiO2 Intake & Output 1210/25/22 10/25/22 18:59 06:59 18:59 Intake Total 280 120 Balance 280 120 Intake: IV 100 Oral 180 120 Other: # Voids 3 2 - Exam Physical Exam: Revealed 72-year-old female in no distress, on room air. Head: Atraumatic normocephalic HEENT:[Neck is supple.] [No neck masses.] [No thyromegaly.] [No JVD.] Chest: rhonchi and wheezes persist bilaterally. Cardiac Exam: [Normal S1 and S2, no S3 gallop, no murmur.] Abdomen: [Soft, nontender, no megaly, no rebound, no guarding, normal bowel sounds.] Extremities: [No clubbing, no edema, no cyanosis.] Neurological Exam: [No focal neurologic deficit.] Alert oriented 3 Psychiatric: Normal mood, affect and normal mental status examination. Skin: No rashes. - Labs CBC & Chem 7: 10/25/22 07:23 10/25/22 07:23 Labs: Abnormal Lab Results - Last 24 Hours (Table) 10/23/22 10/24/22 10/24/22 Range/Units 20:25 16:48 20:27 Potassium (3.5-5.1) mmol/L Glucose (74-99) mg/dL POC Glucose (mg/dL) 300 H 458 H (70-110) mg/dL Hemoglobin A1c 8.7 H (0.0-6.0) % AST (14-36) U/L ALT (4-34) U/L Total Protein (6.3-8.2) g/dL Albumin (3.5-5.0) g/dL 10/25/22 10/25/22 10/25/22 Range/Units 05:59 07:23 09:33 Potassium 3.0 L (3.5-5.1) mmol/L Glucose 280 H (74-99) mg/dL POC Glucose (mg/dL) 287 H 489 H (70-110) mg/dL Hemoglobin A1c (0.0-6.0) % AST 55 H (14-36) U/L ALT 38 H (4-34) U/L Total Protein 5.7 L (6.3-8.2) g/dL Albumin 3.1 L (3.5-5.0) g/dL 10/25/22 Range/Units 11:48 Potassium (3.5-5.1) mmol/L Glucose (74-99) mg/dL POC Glucose (mg/dL) 530 H (70-110) mg/dL Hemoglobin A1c (0.0-6.0) % AST (14-36) U/L ALT (4-34) U/L Total Protein (6.3-8.2) g/dL Albumin (3.5-5.0) g/dL Assessment and Plan Assessment: Impression: Non-ST elevation myocardial infarction Acute exacerbation of COPD Acute purulent tracheobronchitis, doubt pneumonia Near syncope, exact etiology is not clear, could be related to her non-ST elevation myocardial infarction or cough/cough induced syncope Tobacco dependence syndrome Recommendation: continue present treatment plan including antibiotics and bronchodilators and steroids Continue bronchodilators and steroids continue medical management for her underlying coronary artery disease as noted on recent cardiac catheterization. Counseled regarding smoking cessation. possible discharge planning in the next 24 hours We will continue to follow Time with Patient: Less than 30
[2022-10-25 16:30] LABS: Glucose,Whole Blood 380 mg/dL (70-110)
[2022-10-25] MEDS: SODIUM CHLORIDE 0.9% 1,000 ML IV SCH (17:28)
[2022-10-25 20:12] LABS: Glucose,Whole Blood 386 mg/dL (70-110)
[2022-10-25] MEDS: MELATONIN 5 MG TABLET PO SCH (20:13)
[2022-10-25 20:20] LABS: Chol/HDL Ratio 3.89 Ratio; LDL Cholesterol,Calculated 53.4 mg/dL (0.0-131.0)
[2022-10-26] MEDS: IPRATROPIUM-ALBUTEROL 3 ML NEB INHALATION SCH ×4 (01:30→12:46)
[2022-10-26 06:28] LABS: Glucose,Whole Blood 266 mg/dL (70-110)
[2022-10-26] MEDS: INSULIN ASPART (NovoLOG) 100 UNIT/ML VIAL SQ SCH (06:29)
[2022-10-26] MEDS: methylPREDNISolone SOD SUCCI 125 MG/2 ML VIAL IV SCH (06:30)
[2022-10-26] MEDS: SYMBICORT 160-4.5 MCG INHALER INHALATION SCH (08:21)
[2022-10-26] MEDS: CRESTOR 20 MG PO SCH (08:41)
[2022-10-26] MEDS: INSULIN DETEMIR (LEVEMIR) 100 UNIT/ML SYR SQ SCH (08:42)
[2022-10-26] MEDS: GLIMEPIRIDE 4 MG TAB PO SCH (08:43)
[2022-10-26] MEDS: EZETIMIBE 10 MG TAB PO SCH (08:43)
[2022-10-26] MEDS: CLOPIDOGREL 75 MG TAB PO SCH (08:43)
[2022-10-26] MEDS: METOPROLOL SUCCINATE (ER) 25 MG TAB.ER.24H PO SCH (08:43)
[2022-10-26] MEDS: ASPIRIN 81 MG PO SCH (08:43)
[2022-10-26] MEDS: PIOGLITAZONE 45 MG TAB PO SCH (08:43)
[2022-10-26] MEDS: FLUTICASONE 50MCG/SPRAY NASAL 16GM EA NOSTRIL SCH (08:44)
[2022-10-26] MEDS: PANTOPRAZOLE 40 MG/10 ML VIAL IV SCH (10:25)
--- NOTE | 2022-10-26 11:10 | P.PN ---
Subjective Progress Note Date: 10/26/22 HISTORY OF PRESENTING ILLNESS Patient is a pleasant 72-year-old female with history of diabetes mellitus type 2 hypertension, hyperlipidemia, tobacco abuse who presents secondary to recent cough and shortness of breath. She states she has had a persistent cough for the last 5-6 days. She did develop some chest discomfort Thursday which lasted for almost half the day and she attributed this to coughing too hard. Her family member believes she was having chest pain yesterday as well. Additionally family member states she fell unclear if she actually passed out previously as well. She denies any prior cardiac history however did have heart catheterization approximately 10 years ago. This was reportedly relatively normal. She has had diabetes for 25 years. She does smoke however no diagnosis of COPD. EKG shows sinus rhythm with nonspecific minimal ST depressions in the inferior leads. Blood work shows troponin 14.5, 13.6, proBNP 812. No current chest pain 10/25 Patient denies having any chest pain. She states she is having some shortness of breath wheezing and is on steroids and nebulizer treatments. Yesterday, patient underwent cardiac catheterization that revealed a 40-50% le jorge in the RCA, 30% circumflex and high percent and the ostial but was too small vessel to treat. Potassium is 3.0 and replaced. A1c came back at 8.7. 10/26 Patient denies having any chest pain or shortness of breath. She has been afebrile, heart rate in the 70s, blood pressure 124/67, pulse ox 96% on room air. PHYSICAL EXAMINATION Vital signs reviewed. CONSTITUTIONAL: No apparent distress. HEENT: Head is normocephalic. Pupils are equal, round. Sclerae anicteric. Mucous membranes of the mouth are moist. No JVD. CHEST EXAMINATION: Lungs are clear to auscultation. No chest wall tenderness is noted on palpation or with deep breathing. HEART EXAMINATION: Regular rate and rhythm. S1, S2 heard. No murmurs, gallops or rub. ABDOMEN: Soft, nontender. Positive bowel sounds. EXTREMITIES: 2+ peripheral pulses, no lower extremity edema and no calf tenderness. NEUROLOGIC EXAMINATION: Patient is awake, alert and oriented x3. ASSESSMENT 1. Non-STEMI 2. Diabetes mellitus type 2 3. Hyperlipidemia 4. Recent episodes of chest pain she attributed to coughing suspect angina 5. Recent cough rule out infectious etiology 6. Tobacco abuse PLAN Continue patient on aspirin 81 mg daily, Plavix 75 mg daily, Crestor 20 mg daily, Zetia 10 mg daily, Toprol-XL 12.5 mg daily From a cardiology perspective, patient is cleared for discharge home with plan to follow up with Dr. Hicks in 1-2 weeks Nurse practitioner note has been reviewed, I agree with the documented findings and plan of care. Patient was seen and examined. Objective - Vital Signs Vital signs: Vital Signs Temp 97 F L 10/26/22 09:39 Pulse 72 10/26/22 09:39 Resp 18 10/26/22 09:39 BP 124/67 10/26/22 09:39 Pulse Ox 96 10/26/22 09:39 FiO2 Intake & Output 10/25/22 10/26/22 10/26/22 18:59 06:59 18:59 Intake Total 460 Balance 460 Intake: Oral 460 Other: # Voids 2 - Labs CBC & Chem 7: 10/25/22 07:23 10/25/22 07:23 Labs: Abnormal Lab Results - Last 24 Hours (Table) 10/23/22 10/25/22 10/25/22 Range/Units 20:25 11:48 16:26 POC Glucose (mg/dL) 530 H 380 H (70-110) mg/dL Triglycerides 175.00 H (0.00-149.00) mg/dL HDL Cholesterol 30.60 L (40.00-60.00) mg/dL 10/25/22 10/26/22 Range/Units 20:10 06:27 POC Glucose (mg/dL) 386 H 266 H (70-110) mg/dL Triglycerides (0.00-149.00) mg/dL HDL Cholesterol (40.00-60.00) mg/dL
--- NOTE | 2022-10-26 11:51 | P.PN ---
Subjective Progress Note Date: 10/26/22 Principal diagnosis: acute exacerbation of COPD and a non-ST elevation myocardial infarction This is a 72-year-old female with known history of COPD, patient presented to the ER with almost 6 days history of cough, describes the cough as productive with yellow thick phlegm, wheezing, chills, but no fever, no hemoptysis, and she had no clear-cut symptoms to suggest chest pain. She saw her primary care physician on Thursday, and she was placed on Z-Yamil and cough medication. She was told that she may have influenza tracheobronchitis, no testing was performed. The day prior to admission, the patient had diarrhea and she almost had a near syncopal episode during the process. Patient lives alone, she doesn't recall having any trauma during her near syncopal or syncopal episode. At any rate patient presented to the ER, chest x-ray showed COPD, slightly prominent interstitium, no clear-cut evidence of pneumonia, patient was admitted, and this consult was initiated. Her CBC on admission was normal. Basic metabolic profile was normal. However the patient was found to have significantly elevated troponin, normal BNP level, and she tested negative for influenza A, in fluenza B, RSV, and COVID-19. I saw the patient on consultation, and on physical examination she had diffuse rhonchi and wheezes, she was already seen by cardiology for her possible non-ST elevation myocardial infarction, and she is scheduled now to undergo cardiac catheterization sometime today patient is already receiving antibiotics in the form of Rocephin and she is also receiving bronchodilators and steroids. Reevaluated today on 10/21/22, patient is feeling better, breathing easier, less cough and less wheezing less shortness of breath, nonetheless on physical examination she continues to have Mikhail and rhonchi and wheezes. Hence I believe the patient would benefit from another day of treatment using bronchodilators,patient is on room air, O2 sats is 96%.pro calcitonin level was normal which practically speaking ruled out pneumonia Reevaluated today on 10/26/22, patient is doing well, patient is asking to be discharged home. Hardly any cough no wheezing no shortness of breath, I believe if the patient is cleared by cardiology for discharge, I had I will clear the patient for discharge. She will need to be on prednisone burst and taper for the next 12 days, starting at 30 mg daily for 4 days 20 mg daily for 4 days and 10 mg daily for 4 days. Patient will need to be on bronchodilators, and she is to follow up on outpatient basis regarding her underlying COPD. Objective - Vital Signs Vital signs: Vital Signs Temp 97 F L 10/26/22 09:39 Pulse 72 10/26/22 09:39 Resp 18 10/26/22 09:39 BP 124/67 10/26/22 09:39 Pulse Ox 96 10/26/22 09:39 FiO2 Intake & Output 10/25/22 10/26/22 10/26/22 18:59 06:59 18:59 Intake Total 460 118 Balance 460 118 Intake: Oral 460 118 Other: # Voids 2 2 - Exam Physical Exam: Revealed 72-year-old female in no distress, on room air. Head: Atraumatic normocephalic HEENT:[Neck is supple.] [No neck masses.] [No thyromegaly.] [No JVD.] Chest: Clear bilaterally minimal wheezing on forced expiratory maneuver only. Cardiac Exam: [Normal S1 and S2, no S3 gallop, no murmur.] Abdomen: [Soft, nontender, no megaly, no rebound, no guarding, normal bowel sounds.] Extremities: [No clubbing, no edema, no cyanosis.] Neurological Exam: [No focal neurologic deficit.] Alert oriented 3 Psychiatric: Normal mood, affect and normal mental status examination. Skin: No rashes. - Labs CBC & Chem 7: 10/25/22 07:23 10/25/22 07:23 Labs: Abnormal Lab Results - Last 24 Hours (Table) 10/23/22 10/25/22 10/25/22 Range/Units 20:25 11:48 16:26 POC Glucose (mg/dL) 530 H 380 H (70-110) mg/dL Triglycerides 175.00 H (0.00-149.00) mg/dL HDL Cholesterol 30.60 L (40.00-60.00) mg/dL 10/25/22 10/26/22 Range/Units 20:10 06:27 POC Glucose (mg/dL) 386 H 266 H (70-110) mg/dL Triglycerides (0.00-149.00) mg/dL HDL Cholesterol (40.00-60.00) mg/dL Assessment and Plan Assessment: Impression: Non-ST elevation myocardial infarction Acute exacerbation of COPD Acute purulent tracheobronchitis, doubt pneumonia Near syncope, exact etiology is not clear, could be related to her non-ST elevation myocardial infarction or cough/cough induced syncope Tobacco dependence syndrome Recommendation: Continue bronchodilators and transition to oral prednisone burst and taper on outpatient basis. Consider discharge planning if cleared by other consultants Counseled regarding smoking cessation. Follow-up on outpatient basis post discharge. Recommend albuterol 2 puffs 4 times a day when necessary, recommend DuoNeb updrafts 4 times a day and when necessary him a recommended Trelegy Ellipta one puff daily 100/62.5/25 and recommended tapering prednisone over the next 12 days Time with Patient: Less than 30
[2022-10-26 12:34] LABS: Glucose,Whole Blood 332 mg/dL (70-110)
[2022-10-26 13:36] VITALS: BP 130/77; PULSE 73; RESP 17; TEMP 98
--- NOTE | 2022-10-29 16:54 | CDI ---
Documentation Clarification Form Date: 10/29/2022 04:44:36 PM From: Tamela Rogers Phone: Admit Date: 10/23/2022 02:25:00 PM Patient Name: Julianne Capps Visit Number: [id number] Discharge Date: 10/26/2022 01:15:00 PM ATTENTION: The Clinical Documentation Specialists (CDI) and [facility] Coding Staff appreciate your assistance in clarifying documentation. Please respond to the clarification below the line at the bottom and electronically sign. The CDI & [facility] Coding staff will review the response and follow-up if needed. Please note: Queries are made part of the Legal Health Record. If you have any questions, please contact the author of this message via ITS. Dr. Mairssa Camacho Diabetes is documented per ED Note. Patient also has elevated glucose per lab report. Additional specificity regarding the diabetes diagnosis is requested. History/Risk Factors: 72yo F, NSTEMI, CAD w angina, AECOPD w bronchitis, active smoker, HLD, HTN Clinical Indicators: Glucose: 280 10/25 216 10/23 A1C: 8.7 Estimated Average Glucose: 204 Treatment: patient takes Amaryl 8 mg daily; Actos 45 mg daily, has been placed on Accu-Cheks every before meals and at bedtime with insulin sliding scale Please clarify if diabetes was associated with a complication, if known: [ x ] Diabetes Type 2 with hyperglycemia [ ] Diabetes Type 2 with DKA [ ] Lab Results are insignificant for this stay [ ] Other, please specify [ ] Unable to Determine (Template Last Revised: December 2020) MTDD
== END 2022-10-26 13:15 | disposition home or self-care (01) | DRG 281 ==
LOC: EC 11:58 → 3SCARD 14:25
PROVIDERS: ADMIT Internal Medicine; ATTEND Internal Medicine
PROC: B2111ZZ Fluoroscopy of Multiple Coronary Arteries using Low Osmolar Contrast (ICD-10-PCS; 2022-10-24)
PROC: B2151ZZ Fluoroscopy of Left Heart using Low Osmolar Contrast (ICD-10-PCS; 2022-10-24)
PROC: 4A023N7 Measurement of Cardiac Sampling and Pressure, Left Heart, Percutaneous Approach (ICD-10-PCS; principal; 2022-10-24 12:25)
DX: I21.4 Non-ST elevation (NSTEMI) myocardial infarction (principal); J44.0 Chronic obstructive pulmonary disease with (acute) lower respiratory infection; J44.1 Chronic obstructive pulmonary disease with (acute) exacerbation; J84.89 Other specified interstitial pulmonary diseases; E11.65 Type 2 diabetes mellitus with hyperglycemia; I10 Essential (primary) hypertension; F17.210 Nicotine dependence, cigarettes, uncomplicated; I25.119 Atherosclerotic heart disease of native coronary artery with unspecified angina pectoris; Z20.822 Contact with and (suspected) exposure to COVID-19; J20.9 Acute bronchitis, unspecified; E78.5 Hyperlipidemia, unspecified; W18.11XA Fall from or off toilet without subsequent striking against object, initial encounter; R19.7 Diarrhea, unspecified; Z98.61 Coronary angioplasty status; Z79.84 Long term (current) use of oral hypoglycemic drugs; Z79.899 Other long term (current) drug therapy; Z88.8 Allergy status to other drugs, medicaments and biological substances; Z88.3 Allergy status to other anti-infective agents; Z88.2 Allergy status to sulfonamides; Z82.49 Family history of ischemic heart disease and other diseases of the circulatory system; Y92.002 Bathroom of unspecified non-institutional (private) residence as the place of occurrence of the external cause
CPT/HCPCS: 36415; 71046; 80053; 80061; 83036; 83735; 83880; 84145; 84484; 85025; 85610; 85730; 87502; 87634; 87635; 93005; 93458; 94640; 94760; 96361; 96365; 96366; 96375; 96376; 99291